=== PATIENT | male | born 2000 | race Hispanic/Latino ===

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

== ENCOUNTER 2022-10-16 17:22 | Emergency (ER) | payer OTHER ==
[2022-10-16 17:31] VITALS: BP 120/78
[2022-10-16] MEDS ORDERED: IBUPROFEN 800 MG TAB PO ONE (19:00)
[2022-10-16] MEDS ORDERED: TETANUS/DIPHTHERIA TOXOID [ADULT] 0.5 ML VIAL IM ONE (19:30)
[2022-10-16] MEDS ORDERED: CYCL-309 PO (20:16)
[2022-10-16] MEDS ORDERED: NAPR375T6 PO (20:16)
== END 2022-10-16 21:02 | disposition home or self-care (01) ==
LOC: EDH 17:22
DX: S50.812A Abrasion of left forearm, initial encounter (principal); M62.838 Other muscle spasm; M25.552 Pain in left hip; V89.2XXA Person injured in unspecified motor-vehicle accident, traffic, initial encounter; Y93.89 Activity, other specified; Y92.89 Other specified places as the place of occurrence of the external cause; Y99.8 Other external cause status
CPT/HCPCS: 73080; 73502; 90471; 90714

== ENCOUNTER 2023-10-12 18:09 | Emergency (ER) | payer BC ==
[~2023-10-12] VITALS: Ht 170.2 cm; Wt 93.0 kg
[~2023-10-12 18:09] MED LIST: CYCL-309 PO; NAPR375T6 PO
[2023-10-12] MEDS ORDERED: NEOM28OI48 TP (18:43)
[2023-10-12 18:54] VITALS: BP 114/65; PULSE 74; RESP 14; O2SAT 98
== END 2023-10-12 18:57 | disposition home or self-care (01) ==
LOC: EDH 18:09
DX: L03.012 Cellulitis of left finger (principal); Z79.899 Other long term (current) drug therapy
CPT/HCPCS: 99282